=== PATIENT | female | born 1995 | race Caucasian/White ===

== ENCOUNTER → 2021-03-23 | Outpatient (CLI) | payer OTHER ==
[~2021-03-23] MED LIST: CEPHALEXIN500 M1 PO; OMNICEF 300MG300 MG PO; ZOFRAN ODT4 MG PO; ZYRTEC 10MG10 MG PO
== END ==
LOC: COL.RAD 13:36
DX: M25.551 Pain in right hip (principal)
CPT/HCPCS: G0260; J3301